=== PATIENT | female | born 1990 | race Native Hawaiian/Other Pacific Islander ===

== ENCOUNTER → 2017-02-22 | Outpatient (CLI) | payer OTHER ==
--- NOTE | ~2017-02-22 | CR63 ---
[facility] A Service of [facility] RADIOLOGY TEXT RESULTS PATIENT: HERSON VANG LOCATION: [facility] : 86 UNIT #: [id number] AGE: [address]: SURESH MUHAMMAD APRN SEX: F ORDER DR: [id number] [facility] [address], [place] [address] [id number] O MR#: [id number] Acc #: [id number] NAME: HERSON VANG : 1990 SEX: F STUDY DATE/TIME: 02/22/2017 11:57 UNIT: [facility] ROOM: STUDY DESCRIPTION: CR Chest 2 View Attending Physician: Suresh Muhammad Referring Physician: Suresh Muhammad Ordering Physician: Staff Doctor Not On Primary Care Physician: No Primary Care Physician MEDICAL IMAGING REPORT This report is preliminary unless electronic signature is present EXAM Chest, 02/22/2017; [facility]. HISTORY 26-year-old female with positive tuberculin skin test, test yesterday. COMPARISON None. FINDINGS Two-view chest demonstrates low lung volumes. Cardiac size and configuration are normal. Bilateral lungs are expanded and clear. Apices are clear. I see no granuloma, infiltrate or effusion. IMPRESSION Negative chest. No active disease. Dictated by... Tigre Muro M.D. THIS IS AN ELECTRONICALLY VERIFIED REPORT Tigre Muro M.D. at 02/23/2017 8:10 AM ROBBIE/jackson TD: 02/22/2017 16:21 JOB #: [id number] MEDICAL IMAGING REPORT Page 1 of 1 COPY
== END | disposition home or self-care (01) ==
LOC: CRAD 11:38
DX: R76.11 Nonspecific reaction to tuberculin skin test without active tuberculosis (principal)
CPT/HCPCS: 71020